=== PATIENT | female | born 1970 | race Caucasian/White ===

== ENCOUNTER 2017-01-23 13:44 | Emergency (ER) | payer BC ==
[~2017-01-23] VITALS: Ht 167.6 cm; Wt 85.3 kg
[~2017-01-23 13:44] MED LIST: CYCLOBENZAPRINE10 MG ORAL; IBUPROFEN600 MG ORAL
[2017-01-23 14:18] VITALS: BP 125/66
[2017-01-23] MEDS ORDERED: ALBUTEROL SULF8.5 GM INH (14:39)
[2017-01-23] MEDS ORDERED: ZITHROMAX250 MG ORAL (14:39)
[2017-01-23] MEDS ORDERED: BROMFED DM COU118 ML PO (14:39)
--- NOTE | 2017-01-23 14:39 | Emergency Room Report ---
History of Present Illness General Chief Complaint: Upper Respiratory Illness Source: Patient Present Illness HPI URI sxs x 1 week. Assoc sxs include cough and fatigue. No modifying factors. Denies any current n/v/f/c/d, abd pain, back pain, neck pain, photophobia, phonophobia, CP, SOB or headache. Allergies: Coded Allergies: No Known Allergies (Unverified , 05/06/16) Patient History Past Medical History: see triage record Past Surgical History: none Pertinent Family History: none Now: No Reviewed Nursing Documentation: PMH: Agreed, PSxH: Agreed Nursing Documentation-PMH Past Medical History: No Stated History Review of Systems All Other Systems: negative except mentioned in HPI Physical Exam Vital Signs Date Time Temp Pulse Resp B/P Pulse Ox O2 Delivery O2 Flow Rate FiO2 01/23/17 13:57 98.1 65 16 125/66 99 Room Air Sp02 EP Interpretation: reviewed, normal General Appearance: no apparent distress, alert, GCS 15, non-toxic Head: normocephalic, atraumatic Eyes: bilateral eye PERRL, bilateral eye normal inspection ENT: hearing grossly normal, normal pharynx, no angioedema, normal voice, TMs + canals normal, uvula midline Neck: full range of motion, supple/symm/no masses Respiratory: no respiratory distress, rhonchi, speaking full sentences, wheezing, other - egophone LLL Cardiovascular #1: regular rate, rhythm, no edema Musculoskeletal: digits/nails normal, gait/station normal Neurologic: alert, oriented x3, responsive, motor strength/tone normal, sensory intact, speech normal Psychiatric: judgement/insight normal, memory normal, mood/affect normal, no suicidal/homicidal ideation Skin: normal color, no rash, warm/dry, well hydrated Lymphatic: no adenopathy Medical Decision Making PA Attestation Dr. Davis is my supervising physician with whom patient management has been discussed with. Diagnostic Impression: Primary Impression: Community acquired bacterial pneumonia ER Course Pt. presents to the ED c/o of cough and congestion Ddx considered but are not limited to bronchitis, pneumonia, viral upper respiratory tract infection Vital signs: are WNL, pt. is afebrile H&PE are most consistent with pneumonia ORDERS: none required at this time, the diagnosis is clinical ED INTERVENTIONS: None required at this time. DISCHARGE: At this time pt. is stable for d/c to home. Will provide printed patient care instructions, and any necessary prescriptions. Care plan and follow up instructions have been discussed with the patient prior to discharge. Last Vital Signs Date Time Temp Pulse Resp B/P Pulse Ox O2 Delivery O2 Flow Rate FiO2 01/23/17 14:57 98.1 65 16 125/66 99 Room Air Disposition: HOME, SELF-CARE Condition: Stable Scripts Albuterol Sulfate* (ALBUTEROL SULFATE MDI*) 8.5 Gm Hfa.aer.ad 2 PUFF INH Q6HR for Shortness of Breath, #1 INH 0 Refills Prov: STEPHEN RUTHERFORD P.A. 01/23/17 D-Methorphan Hb/P-Epd Hcl/Bpm (BROMFED DM COUGH SYRUP) 118 Ml Syrup 5 ML PO TID for 7 Days, #120 ML Prov: STEPHEN RUTHERFORD P.A. 01/23/17 Azithromycin* (ZITHROMAX*) 250 Mg Tablet 250 MG ORAL DAILY for 5 Days, #1 PACK Prov: STEPHEN RUTHERFORD P.A. 01/23/17 Referrals: NOT CHOSEN IPA/,REFERRING (PCP) Patient Instructions: Upper Respiratory Infection, Adult [email or web address] [email or web address] Jan 23, 2017 14:39
[2017-01-23 14:57] VITALS: BP 125/66
== END 2017-01-23 14:58 | disposition home or self-care (01) ==
LOC: EMR 14:20
DX: J15.9 Unspecified bacterial pneumonia (principal); R53.83 Other fatigue
CPT/HCPCS: 99284

== ENCOUNTER 2018-10-26 15:13 | Emergency (ER) | payer BC ==
[~2018-10-26] VITALS: Ht 167.6 cm; Wt 127.0 kg
[~2018-10-26 15:13] MED LIST changes: +ALBUTEROL SULF8.5 GM INH; +BROMFED DM COU118 ML PO; +ZITHROMAX250 MG ORAL
[2018-10-26] MEDS ORDERED: NKM (15:22)
[2018-10-26 15:27] VITALS: BP 133/68
--- NOTE | 2018-10-26 15:33 | NUR ---
ED Nurse Note:pt. came with flu like symptoms, no fever
--- NOTE | 2018-10-26 15:57 | Emergency Room Report ---
History of Present Illness General Chief Complaint: Upper Respiratory Illness Source: Patient Present Illness HPI 48 year old female presents to the emergency department complaining of persistent cough, sputum production, fevers and chills 2 weeks. Patient reports that she was evaluated at an urgent care 2 weeks ago and received abx, but continues to have symptoms. Reports nasal congestion and rhinorrhea. Denies recent travel. Denies sore throat, ear pain, high fevers, lethargy, neck pain/ stiffness, irritability, photophobia dehydration, N/V/D. Denies Cp, Palpitations , LOC, AMS, seizures, paresthesias, or changes in Hearing or vision, no Sudden severe PEDROZA. Denies hx of smoking, asthma or COPD. Allergies: Coded Allergies: No Known Allergies (Unverified , 05/06/16) Patient History Past Medical History: see triage record Past Surgical History: none Pertinent Family History: none Last Menstrual Period: 10/10/18 Now: No Reviewed Nursing Documentation: PMH: Agreed; PSxH: Agreed Nursing Documentation-PMH Past Medical History: No Stated History Review of Systems All Other Systems: negative except mentioned in HPI Physical Exam Vital Signs Date Time Temp Pulse Resp B/P (MAP) Pulse Ox O2 Delivery O2 Flow Rate FiO2 10/26/18 15:20 97.5 75 18 133/68 97 Room Air Sp02 EP Interpretation: reviewed, normal General Appearance: no apparent distress, alert, GCS 15, non-toxic Head: normocephalic, atraumatic Eyes: bilateral eye normal inspection, bilateral eye PERRL ENT: hearing grossly normal, normal voice, TMs + canals normal, uvula midline, nasal congestion Neck: full range of motion, no meningismus Respiratory: chest non-tender, lungs clear, normal breath sounds, speaking full sentences, wheezing - scant Cardiovascular #1: regular rate, rhythm Musculoskeletal: back normal, gait/station normal, normal range of motion, non- tender Neurologic: alert, oriented x3, responsive, motor strength/tone normal, sensory intact, speech normal, grossly normal Psychiatric: judgement/insight normal Skin: normal color, no rash, warm/dry, well hydrated Lymphatic: no adenopathy Medical Decision Making PA Attestation Dr. Richards is my supervising Physician whom patient management has been discussed with. Diagnostic Impression: Primary Impression: Upper respiratory infection Qualified Codes: J06.9 - Acute upper respiratory infection, unspecified ER Course 48 year old female presents to the emergency department complaining of persistent cough, sputum production, fevers and chills 2 weeks. Patient reports that she was evaluated at an urgent care 2 weeks ago and received abx, but continues to have symptoms. Reports nasal congestion and rhinorrhea. Denies recent travel. Denies sore throat, ear pain, high fevers, lethargy, neck pain/ stiffness, irritability, photophobia dehydration, N/V/D. Denies Cp, Palpitations , LOC, AMS, seizures, paresthesias, or changes in Hearing or vision, no Sudden severe PEDROZA. Denies hx of smoking, asthma or COPD. Ddx considered but are not limited to URI, pneumonia, PE, strep pharyngitis, meningitis. Vital signs: Pt. is afebrile, the remaining VS are WNL H&PE are most consistent with URI- no meningeal signs, oropharynx is not involved, no evidence of bacterial infection at this time. ORDERS: none required at this time, the diagnosis is clinical ED INTERVENTIONS: None required at this time. --PT. EDUCATION: Discussed antibiotic resistance with inappropriate prescribing of antibiotics for viral illnesses. Discussed signs and symptoms to indicate viral illness versus bacterial illness. DISCHARGE: At this time pt. is stable for d/c to home. Will provide printed patient care instructions, and any necessary prescriptions. Care plan and follow up instructions have been discussed with the patient prior to discharge. Last Vital Signs Date Time Temp Pulse Resp B/P (MAP) Pulse Ox O2 Delivery O2 Flow Rate FiO2 10/26/18 15:27 75 18 Room Air 10/26/18 15:27 97.5 133/68 97 Status: improved Condition: Stable Scripts Pseudoephedrine Hcl* (NEXAFED*) 30 Mg Tablet 30 MG ORAL Q6H PRN for congestion for 5 Days, #20 TAB Prov: Radha Marie 10/26/18 Albuterol Sulfate* (ALBUTEROL SULFATE MDI*) 8.5 Gm Hfa.aer.ad 2 PUFF INH Q3H, #1 INH 0 Refills Prov: Radha Marie 10/26/18 Benzonatate* (TESSALON PERLE*) 100 Mg Capsule 100 MG ORAL THREE TIMES A DAY, #30 PERLE Prov: Radha Marie 10/26/18 Codeine/Promethazine Hcl* (PROMETHAZINE-CODEINE SYRUP*) 118 Ml Syrup 5 ML ORAL Q6H PRN for For Cough, #120 ML 0 Refills Prov: Radha Marie 10/26/18 Guaifenesin (Guaifenesin) 1,200 Mg Tab.er.12h 1200 MG PO Q12HR, #20 TAB Prov: Radha Marie 10/26/18 Departure Forms: Return to Work Return to Work Date: Oct 30, 2018 Work Restrictions: None Return to Full Activity: Oct 30, 2018 Patient Instructions: Upper Respiratory Infection, Adult Additional Instructions: Take medications as directed. Follow up with a Primary Care Provider in 3-5 days, even if your symptoms have resolved. --Please review list of primary care clinics, if you do not already have a primary care provider Return sooner to ED if new symptoms occur, or current symptoms become worse. Do not drink alcohol, drive, or operate heavy machinery while taking Cough Syrup as this may cause drowsiness. - Please note that this Emergency Department Report was dictated using [employer] transcriptionist technology software, occasionally this can lead to erroneous entry secondary to interpretation by the dictation equipment. Radha Marie Oct 26, 2018 15:57
[2018-10-26] MEDS ORDERED: PROMETHAZINE-C118 M1 ORAL (16:03)
[2018-10-26] MEDS ORDERED: ALBUTEROL SULF8.5 GM INH (16:03)
[2018-10-26] MEDS ORDERED: GUAIFENESIN1200 MG PO (16:03)
[2018-10-26] MEDS ORDERED: NEXAFED30 MG ORAL (16:03)
[2018-10-26] MEDS ORDERED: TESSALON PERLE100 MG ORAL (16:03)
[2018-10-26 16:07] VITALS: BP 133/68
--- NOTE | 2018-10-26 16:15 | NUR ---
ER DISCHARGE NOTE: Patient is cleared to be discharged per ERMD, pt is aox4, on room air, with stable vital signs. pt was given dc and prescription instructions, pt was able to verbalize understanding, pt is able to ambulate with steady gait. pt took all belongings.
== END 2018-10-26 16:20 | disposition home or self-care (01) ==
LOC: EMR 15:50
DX: J06.9 Acute upper respiratory infection, unspecified (principal)
CPT/HCPCS: 99282